=== PATIENT | female | born 1940 | race African-American/Black ===

== ENCOUNTER 2016-11-02 11:07 | Emergency (ER) | payer MEDICARE, BC ==
[~2016-11-02 11:07] MED LIST: ACET500CAP PO; ADOXA100 MG PO; APRES50 PO; ASAB PO; ATRONASAL3 NAS; B COMPLETE PO; COZ50 PO; CYANO1000T PO; CYANOCOBALAMIN; DIOV160 PO; DSS PO; FLONASE NAS; FOLIC PO; HALF81 PO; HCTZ25B PO; HCTZ50B PO; HYDRALAZINE100 MG PO; HYDROCORT12 TOP; L40 PO; LEVAQUIN5T PO; LIPITOR40 PO; LIPITOR80 MG PO; LOP25 PO; LORTAB 5 PO; MAGNESIUM OXIDE PO; MONO20 PO; NEPHRO PO; NORCO1 TA1 PO; NORV10 PO; NORV5 PO; NORVASC PO; PHOSLO PO; PRILO PO; PRIN20 PO; PROTONIX PO; RENAL SFTGLS1 MG PO; ROCALTROL0.5 MCG PO; SODBICAR10 PO; T PO; TOPROL XL PO; TOPXL100 PO; TOPXL25 PO; TUMS E-X750 M2 PO; TUMSROLL PO; VITAMIN B-121000 MC1 SL; VITC500 PO; ZETIA PO; ZYRTEC ALLGY10 MG PO; [UNRECOGNIZED DRUG - OTHER] PO; [UNRECOGNIZED DRUG - OTHER] PO
[2016-12-11] MEDS ORDERED: MOBIC15 MG PO (14:02)
== END 2016-11-02 11:45 | disposition home or self-care (01) ==
LOC: ER 11:07
DX: T82.838A Hemorrhage due to vascular prosthetic devices, implants and grafts, initial encounter (principal); I10 Essential (primary) hypertension; Z85.3 Personal history of malignant neoplasm of breast; Z79.82 Long term (current) use of aspirin; Z79.899 Other long term (current) drug therapy
CPT/HCPCS: 93005; 99284

== ENCOUNTER 2016-12-16 10:18 | Day surgery (SDC) | payer MEDICARE, BC ==
--- NOTE | ~2016-12-16 | OP ---
Record Of Operation [facility] [address] [place]. 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 PROCEDURE: Elevation of left brachiocephalic fistula. SURGEON: Todd Rdz M.D. WORK ADJUSTMENT INSTRUCTOR: Denys. ANESTHESIA: Local with sedation. COMPLICATIONS: None. BLOOD LOSS: Minimal. HISTORY: The patient is a [id number] with a left brachiocephalic fistula. 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 It was felt she would benefit from elevation of the proximal fistula to allow additional area to access it. This was discussed in detail with the patient. She expressed understanding and desired to proceed. DESCRIPTION OF PROCEDURE: The patient was taken to the operating room and placed in the supine position. She was given IV sedation without complication. The left arm was prepped and draped in a sterile fashion. 1% lidocaine was infiltrated in the skin and subcutaneous tissues overlying the fistula in the upper arm and a longitudinal incision created. Dissection was performed to free the vein circumferentially at the length of the incision. Branches were controlled with clips and divided. Once the vein was freed, hemostasis assured. The deep tissues were closed beneath the vein with running 2-0 Vicryl suture. The skin was closed over the vein with running 4-0 Monocryl suture and Dermabond dressing applied. The patient tolerated the procedure well. She will be taken to the recovery room and discharged home when stable. ELVIS/SILVIANO Todd Rdz M.D. / [id number] CC: Todd Rdz M.D. Record Of Operation [facility] [address] [place] [address] NAME: KHURRAM DEMARCO : 36 STATUS : REG [facility]#: [id number] AGE: 76 ADM/REG DATE : 12/16/16 MR#: [id number] REPORT SERV DATE: 12/16/16 DICTATED BY: TODD RDZ DATE: 12/16/16 REPORT STATUS : Draft TRANSCRIBED BY: MODL DATE: 12/16/16 Isael Reed M.D.
[~2016-12-16 10:18] MED LIST changes: +MOBIC15 MG PO
[2016-12-16 11:45] LABS: BASOPHILS 0.6 %; BASOPHILS ABSOLUTE 0.05 10/3/uL (0.0-0.16); EOSINOPHILS 1.6 %; EOSINOPHILS ABSOLUTE 0.13 10/3/uL (0.0-0.53); HEMATOCRIT 37.4 % (36.0-48.0); HEMOGLOBIN 12.1 g/dL (12.0-16.0); IMMATURE GRANULOCYTES 0.6 %; IMMATURE GRANULOCYTES ABSOLUTE 0.05 10/3/uL (0.0-0.11); LYMPHOCYTES 33.5 %; LYMPHOCYTES ABSOLUTE 2.81 10/3/uL (0.67-4.30); MANUAL DIFF NO %; MEAN CORPUS HGB CONC 32.4 g/dL (32.0-36.0); MEAN CORPUSCULAR VOLUME 92.8 fL (80-100); MEAN PLATELET VOLUME 9.3 fL (9.2-13.0); MONOCYTES 8.8 %; MONOCYTES ABSOLUTE 0.74 10/3/uL (0.21-1.20); NEUTROPHILS 54.9 %; PLATELET COUNT 226 10/3/uL (150-400); RBC DISTRIBUTION WIDTH 16.6 % (12.0-16.0); RED CELL COUNT 4.03 10/6/uL (4.0-5.6); WHITE BLOOD CELLS 8.4 10/3/uL (4.5-10.5)
[2016-12-16 11:56] LABS: BUN (BLOOD UREA NITROGEN) 38 MG/DL (6-23); CALCIUM, SERUM 8.3 MG/DL (8.5-10.4); CHLORIDE, SERUM 96 MMOL/L (96-112); CO2 (CARBON DIOXIDE) 36 MMOL/L (24-34); CREATININE 9.49 MG/DL (0.55-1.02); GFR AFRICAN AMERICAN 4 ML/MIN (>=60); GFR NON AFRICAN AMERICAN 4 ML/MIN (>=60); GLUCOSE, SERUM 84 MG/DL (60-99); POTASSIUM, SERUM 3.7 MMOL/L (3.5-5.3); SODIUM, SERUM 139 MMOL/L (135-148)
== END 2016-12-16 16:47 | disposition home or self-care (01) ==
LOC: SDC 10:18
PROVIDERS: Surgery
DX: Z45.2 Encounter for adjustment and management of vascular access device (principal); I12.0 Hypertensive chronic kidney disease with stage 5 chronic kidney disease or end stage renal disease; N18.6 End stage renal disease; Z87.891 Personal history of nicotine dependence; Z90.5 Acquired absence of kidney; Z85.3 Personal history of malignant neoplasm of breast
CPT/HCPCS: 36832; 80048; 85025; 93005; A9270-GY; J0690; J2250; J2405; J3010